=== PATIENT | female | born 1990 | race African-American/Black ===

== ENCOUNTER 2016-09-01 09:31 | Day surgery (SDC) | payer OTHER ==
[~2016-09-01 09:31] MED LIST: RINGERS SOLUTION,LACTATED 1,000 ML IV PRN
[2016-09-01 10:05] LABS: HEMATOCRIT 42.2 % (36.0-47.0); HEMOGLOBIN 13.9 g/dL (12.0-15.5); HGB HCT DIFFERENCE -0.5; MEAN CORPUSCULAR HEMOGLOBIN 29.7 pg (27.0-33.4); MEAN CORPUSCULAR HGB CONC 32.9 g/dL (32.0-36.0); MEAN CORPUSCULAR VOLUME 90 fl (80-97); RED BLOOD COUNT 4.67 10^6/uL (3.72-5.28); RED CELL DISTRIBUTION WIDTH 13.5 % (11.5-14.0); WHITE BLOOD COUNT 6.2 10^3/uL (4.0-10.5)
[2016-09-01] MEDS ORDERED: ALBUTEROL SULFATE 0.083% NEB 2.5 MG/3 ML AMPUL NEB PRN (10:55)
[2016-09-01] MEDS ORDERED: ALBUTEROL SULFATE 0.083% NEB 2.5 MG/3 ML AMPUL NEB ONE (10:56)
[2016-09-01] MEDS ORDERED: RINGERS SOLUTION,LACTATED 1,000 ML IV PRN (11:08)
[2016-09-01] MEDS ORDERED: RINGERS SOLUTION,LACTATED 1,000 ML IV ONE (11:15)
[2016-09-01] MEDS ORDERED: LIDOCAINE 1% INJ-PF (10 MG/ML) 30 ML SDV ONE (12:14)
[2016-09-01] MEDS ORDERED: FENTANYL CITRATE INJ/PF 100 MCG/2 ML AMPUL ONE (15:23)
[2016-09-01] MEDS ORDERED: PROPOFOL INJ 200 MG/20 ML VIAL IV ONE (15:24)
[2016-09-01] MEDS ORDERED: MIDAZOLAM 2 MG/2 ML INJ ONE (15:24)
[2016-09-01] MEDS ORDERED: ACETAMINOPHEN 100 ML IV ONE (15:24)
--- NOTE | 2016-09-01 16:05 | PDOC DISCHARGE SUMMARY ---
Discharge Summary (SDC) - Discharge Final Diagnosis: lipoma right inner thigh Date of Surgery: 09/01/16 Discharge Date: 09/01/16 Condition: Good Treatment or Instructions: Leave dressing on for 48 hours; return to clinic in approximately 1 week for wound check, or seek medical advice if redness, swelling or pain results while out of town. Heavy lifting straining physical activity for approximately 10 days. Steri-Strips to fall off on own. Take Motrin or Tylenol. Discharge Diet: As Tolerated Discharge Activity: Energy Conservation, No Lifting Over 10 Pounds, No Lifting/ Push/Pulling Home Care Assistance: None Needed Report the Following to Your Physician Immediately: Shortness of Breath, Fever over 101 Degrees
[2016-09-01 17:22] VITALS: BP 126/78
--- NOTE | 2016-09-02 12:28 | OPERATIVE REPORT E ---
Operative Report NAME: MATT DORMAN : 1990 AGE: 25Y DATE OF SURGERY: 09/01/2016 ROOM: PREOPERATIVE DIAGNOSIS: Symptomatic left inner thigh lipoma. POSTOPERATIVE DIAGNOSIS: Symptomatic left inner thigh lipoma. OPERATION: Excision of left inner thigh lipoma, closure of wound primarily. SURGEON: CHAVA DIXON M.D. TARIFF PUBLISHING AGENT: MD Ronnie ESTIMATED BLOOD LOSS: Scant. DRAINS: None. TISSUE REMOVED OR ALTERED: Lipoma and overlying skin. COMPLICATIONS: None. FINDINGS: See below. SUMMARY OF PROCEDURE: The patient was seen in the preop holding area, left inner thigh marked, then she was taken to the operating room where LMAC anesthesia was induced. The legs were frog legged into position and the left inner thigh lesion exposed, prepped and draped in a sterile fashion. Surgical plan/surgical timeout were conducted. The skin was anesthetized with 1% lidocaine. The findings were significant for a 3 x 3 x 6 to 7 cm soft tissue mass of the left medial inner thigh. An elliptical incision was made in the skin overlying the longitudinally oriented mass. The underlying mass including lipomatous tissue was excised in its entirety. Additional fatty tissue around the perimeter was also excised to ensure a smooth level closure. Wound closed in layers with 3-0 Vicryl, benzoin and Steri-Strips, and a compressive dressing applied. The patient tolerated the procedure well and taken to the recovery room in stable condition. ANGELITA Trujillo assisted with skin retraction and wound closure. DICTATING PHYSICIAN: CHAVA DIXON M.D. [id number] PHY#: [id number] ID: [id number] JOB#: [id number] ACCT: [id number] cc:CHAVA DIXON M.D. > MTDD
== END 2016-09-01 17:20 | disposition home or self-care (01) ==
LOC: OROUT 09:31
PROVIDERS: ATTEND Surgery
PROC: 0JBM0ZZ Excision of Left Upper Leg Subcutaneous Tissue and Fascia, Open Approach (ICD-10-PCS; principal; 2016-09-01 11:30)
DX: D17.24 Benign lipomatous neoplasm of skin and subcutaneous tissue of left leg (principal); F17.210 Nicotine dependence, cigarettes, uncomplicated; Z79.899 Other long term (current) drug therapy
CPT/HCPCS: 36415; 85027; 81025; 88304 ×2; 94640; 11406; J2250; J3010; J3490; J2704; J0131; 300

== ENCOUNTER → 2017-03-21 | Outpatient (CLI) | payer OTHER ==
--- NOTE | 2017-03-21 16:27 | RADIOLOGY REPORT (SQ) ---
EXAM DESCRIPTION: U/S IH3IINE TRNABD 1GES W/ODOP COMPLETED DATE/TIME: 03/21/2017 4:11 pm REASON FOR STUDY: Z34.81 ENCOUNTER FOR SUPRVSN OF NORMAL , FIRST TRIMESTER Z34.81 ENCOUNTE R FOR SUPRVSN OF NORMAL , FIRST TRIM COMPARISON: None. TECHNIQUE: Trans abdominal static and realtime grayscale images acquired of the pelvis. Additional s elected spectral and color Doppler images recorded. All images stored on PACs. bHCG: Not available LIMITATIONS: None. FINDINGS: FETUS: Living intrauterine . EGA: 8 weeks 6 days by crown-rump length ANG: 10/25/2017 FHR: 173 beats per minute. SUBCHORIONIC BLEED: No SIZE OF BLEED: Not applicable. UTERUS: No masses. No anomalies. Uterus is 11.5 x 7.2 x 7.4 cm in size. Placenta is developing ante riorly CERVICAL LENGTH: 3 cm. Closed. RIGHT ADNEXA: Normal ovary with normal vascular flow. Right ovary 3.3 x 2.7 x 2.1 cm in size. No adnexal free fluid. No adnexal masses. LEFT ADNEXA: Left ovary and adnexa not well seen due to bowel gas. FREE FLUID: None. OTHER: No other significant finding. IMPRESSION: LIVING INTRAUTERINE . EGA 8 weeks 6 days Trimester of : First - 0 to 13 weeks. TECHNICAL DOCUMENTATION: JOB ID: [id number] [email or web address]- All Rights Reserved
== END ==
LOC: RAD 16:20
PROVIDERS: ATTEND Nurse Practitioner Women's Health
DX: Z34.81 Encounter for supervision of other normal pregnancy, first trimester (principal)
CPT/HCPCS: 76801

== ENCOUNTER → 2017-06-02 | Outpatient (CLI) | payer SELFPAY ==
--- NOTE | 2017-06-02 16:34 | RADIOLOGY REPORT (SQ) ---
EXAM DESCRIPTION: U/S OB 14+ TRNABD 1GES W/O DOP COMPLETED DATE/TIME: 06/02/2017 4:25 pm REASON FOR STUDY: ENCOUNTER FOR SUPERVISION OF OTHER NORMAL , SECOND TRIMESTER Z34.82 ENCO UNTER FOR SUPRVSN OF NORMAL , SECOND TRI COMPARISON: None. TECHNIQUE: Static and Dynamic grayscale imaging performed of gravid uterus using transabdominal appr oac. Additional selected color Doppler and spectral images recorded. All stored on PACS. LIMITATIONS: None. FINDINGS: EGA: 19 weeks 5 days ANG: 10/22/2017 ANA: 10.9 PLACENTA: Anterior. GRADE: I PRESENTATION: Transverse. ANATOMY: HEART RATE: 160 beats per minute. FOUR CHAMBER HEART: Visualized. THREE VESSEL CORD: Yes. CORD INSERTION: Visualized. KIDNEYS AND BLADDER: Visualized. Appear normal. STOMACH: Visualized. Appears normal. SPINE: Normal as visualized. BRAIN AND LATERAL VENTRICLES: Visualized. Appear normal. OTHER: No other significant finding. MATERNAL ADNEXA: Maternal ovaries not visualized. CERVICAL LENGTH: 3.2 cm Closed. OTHER: No other significant finding. IMPRESSION: LIVING INTRAUTERINE . ESTIMATED GESTATIONAL AGE 19 weeks 5 days NO VISUALIZED ANOMALIES. Trimester of : Second trimester - 13 weeks 1 day to 27 weeks 6 days. TECHNICAL DOCUMENTATION: JOB ID: [id number] [employer]- All Rights Reserved Reading location - IP/workstation name: [email or web address]
== END ==
LOC: RAD 14:54
PROVIDERS: ATTEND Nurse Practitioner Women's Health
DX: Z34.82 Encounter for supervision of other normal pregnancy, second trimester (principal)
CPT/HCPCS: 76805

== ENCOUNTER 2017-10-18 17:10 | Emergency (ER) | payer OTHER ==
[2017-10-18 18:24] VITALS: BP 131/79
--- NOTE | 2017-10-18 19:21 | EKG REPORT ---
SEVERITY:- ABNORMAL ECG - SINUS RHYTHM NONSPECIFIC T ABNORMALITIES, ANTERIOR LEADS : Confirmed by: Scott Venegas MD 18-Oct-2017 19:20:50
--- NOTE | 2017-10-18 19:36 | ER Document Report ---
ED General - General Chief Complaint: Chest Pain Stated Complaint: chest pain Time Seen by Provider: 10/18/17 19:18 Notes: Patient is a 27-year-old female that is 39 weeks gravid that presents to the emergency department for chief complaint of chest pain. Patient reports that she had an episode of chest pain around 1:00 to last about 25 minutes she described as a sharp sensation, that went to her left shoulder, is not worse with exertion, she did have some nausea but no vomiting. She then had a a second episode of the chest pain, so she called her OB office and they recommended her to come to the emergency department. Denies prior history of cardiac disease, or DVT or PE. Denies family history of the same. She also denies any unilateral leg swelling, or redness, states she has had some swelling in her legs from the , but nothing that is changed recently. Past Medical History: Denies chronic medical conditions Past Surgical History: Denies significant surgical history Social History: Denies tobacco, alcohol or drug use. Family History: Reviewed and noncontributory for presenting illness Allergies: Reviewed, see documented allergy list. REVIEW OF SYSTEMS: Unless otherwise stated in this report the patient's positive and negative responses for review of systems for constitutional, eyes, ENT, cardiovascular, respiratory, gastrointestinal, neurological, genitourinary, musculoskeletal, and integumentary systems and related systems to the presenting problem are either as stated in the HPI or were not pertinent or were negative for the symptoms and/or complaints related to the presenting medical problem. PHYSICAL EXAMINATION: Vital signs reviewed, nursing noted reviewed. GENERAL: Well-appearing, well-nourished and in no acute distress. HEAD: Atraumatic, normocephalic. EYES: Eyes appear normal, extraocular movements intact, sclera anicteric, conjunctiva are normal. ENT: nares patent, oropharynx clear without exudates. Moist mucous membranes. NECK: Normal range of motion, supple without lymphadenopathy LUNGS: Breath sounds clear to auscultation bilaterally and equal. No wheezes rales or rhonchi. HEART: Regular rate and rhythm without murmurs ABDOMEN: Soft, gravid abdomen, nontender, normoactive bowel sounds. No rebound , guarding, or rigidity. No masses appreciated. EXTREMITIES: Nontender, good range of motion, no pitting or edema. NEUROLOGICAL: No focal neurological deficits. Moves all extremities spontaneously Motor and sensory grossly intact on exam. PSYCH: Normal mood, normal affect. SKIN: Warm, Dry, normal turgor, no rashes or lesions noted on exposed skin TRAVEL OUTSIDE OF THE [place] IN LAST 30 DAYS: No - Related Data Allergies/Adverse Reactions: No Known Allergies Allergy (Verified 10/18/17 20:49) Past Medical History - Social History Smoking Status: Never Smoker Family History: Reviewed & Not Pertinent Patient has suicidal ideation: No Patient has homicidal ideation: No - Past Medical History Cardiac Medical History: Denies: Hx Coronary Artery Disease, Hx Heart Attack, Hx Hypertension Pulmonary Medical History: Denies: Hx Asthma, Hx Bronchitis, Hx COPD, Hx Pneumonia Neurological Medical History: Denies: Hx Cerebrovascular Accident, Hx Seizures Renal/ Medical History: Denies: Hx Peritoneal Dialysis Musculoskeletal Medical History: Denies Hx Arthritis - Immunizations Hx Diphtheria, Pertussis, Tetanus Vaccination: Yes Review of Systems - Review of Systems Notes: Dictated Physical Exam - Vital signs Vitals: Temp Pulse Resp BP Pulse Ox 98.5 F 63 18 131/79 H 99 10/18/17 18:22 10/18/17 18:22 10/18/17 18:22 10/18/17 18:22 10/18/17 18:22 - Notes Notes: Dictated Course - Re-evaluation Re-evalutation: 10/18/17 19:36 Patient seen and examined vital signs reviewed. Laboratory data and imaging were ordered as appropriate for the patient's presenting symptoms and complaint, with consideration of any critical or life threatening conditions that may be associated with their obtained history and exam as noted above. Patient was advised of the risks and benefits of evaluating chest pain in , I did recommend that the patient have a workup for possible PE including a d-dimer and CT angiogram, however the patient after being advised on radiation risk versus the risk of possibly having a pulmonary embolism, the patient refused CT imaging We will obtain cardiac evaluation however, including EKG and troponin testing, and d-dimer if negative, will have the patient go to labor and delivery, advised her that she would have to leave AGAINST MEDICAL ADVICE, patient was agreeable to this plan of care, patient also refused chest x-ray, did not want any radiation exposure, she was advised that if her symptoms worsen developed shortness of breath that she should immediately return to the emergency department. Patient was transferred to labor and delivery, they stated they will follow-up on the patient's blood work. After performing a Medical Screening Examination, I spoke with the patient at length in regards to leaving the department against medical advice. I discussed evaluation for their presenting complaint and recommended further evaluation, specifically CT imaging for PE evaluation. I do not believe the patient should leave but the patient is alert oriented x4, understands the risks and benefits of staying and leaving including disability and . Pt understands that they can return at any time for further care and is more than welcome to do so. Pt verbalizes this understanding. *Note is created using voice recognition software and may contain spelling, syntax or grammatical errors. - Vital Signs Vital signs: Temp Pulse Resp BP Pulse Ox 98.5 F 63 18 131/79 H 99 10/18/17 18:22 10/18/17 18:22 10/18/17 18:22 10/18/17 18:22 10/18/17 18:22 - Laboratory Result Diagrams: 10/18/17 19:43 10/18/17 19:43 Laboratory results interpreted by me: 10/18/17 10/18/17 10/18/17 19:43 19:43 19:43 D-Dimer 0.61 H Chloride 108 H Carbon Dioxide 19 L Glucose 72 L Alkaline Phosphatase 129 H Urine Protein 30 H Urine Urobilinogen 4.0 H - EKG Interpretation by Me Additional EKG results interpreted by me: 10/18/17 19:58 EKG demonstrates normal sinus rhythm with a ventricular rate of 65 bpm, normal axis, normal intervals, T-wave inversion noted in V2-V4, no ST changes. Discharge - Discharge Clinical Impression: Chest pain Qualifiers: Chest pain type: unspecified Qualified Code(s): R07.9 - Chest pain, unspecified Condition: Good Disposition: AGAINST MEDICAL ADVICE Instructions: Chest Pain of Unclear Cause ([facility])
[2017-10-18 20:15] LABS: ABSOLUTE BASOPHILS # (AUTO) 0.1 10^3/uL (0.0-0.2); ABSOLUTE EOSINOPHILS # (AUTO) 0.1 10^3/uL (0.0-0.6); ABSOLUTE LYMPHOCYTES (AUTO) 2.8 10^3/uL (0.5-4.7); ABSOLUTE MONOCYTES (AUTO) 0.8 10^3/uL (0.1-1.4); ABSOLUTE NEUT (AUTO) 6.5 10^3/uL (1.7-8.2); BASOPHILS % (AUTO) 0.6 % (0-2); EOSINOPHILS % (AUTO) 1.1 % (0-6); HEMATOCRIT 40.4 % (36.0-47.0); HEMOGLOBIN 13.5 g/dL (12.0-15.5); LYMPHOCYTES % (AUTO) 27.4 % (13-45); MEAN CORPUSCULAR HEMOGLOBIN 30.1 pg (27.0-33.4); MEAN CORPUSCULAR HGB CONC 33.5 g/dL (32.0-36.0); MEAN CORPUSCULAR VOLUME 90 fl (80-97); MONOCYTES % (AUTO) 7.6 % (3-13); PLATELET COUNT 165 10^3/uL (150-450); RED BLOOD COUNT 4.49 10^6/uL (3.72-5.28); SEGMENTED NEUTROPHILS % (AUTO) 63.3 % (42-78); TOTAL CELLS COUNTED % (AUTO) 100 %; WHITE BLOOD COUNT 10.3 10^3/uL (4.0-10.5)
[2017-10-18 20:19] LABS: APPEARANCE,URINE SLIGHTLY-CLOUDY; BILIRUBIN,URINE NEGATIVE (NEGATIVE); COLOR,URINE AMBER; GLUCOSE, URINE NEGATIVE (NEGATIVE); KETONES,URINE NEGATIVE (NEGATIVE); LEUKOCYTE ESTERASE,URINE NEGATIVE (NEGATIVE); NITRITE,URINE NEGATIVE (NEGATIVE); PROTEIN,URINE 30 mg/dL (NEGATIVE)
[2017-10-18 20:34] LABS: ALANINE AMINOTRANSFERASE 24 U/L (9-52); ALBUMIN 3.5 g/dL (3.5-5.0); ALKALINE PHOSPHATASE 129 U/L (38-126); ANION GAP 10 (5-19); ASPARTATE AMINO TRANSFERASE 20 U/L (14-36); BILIRUBIN,DIRECT 0.3 mg/dL (0.0-0.4); BILIRUBIN,TOTAL 0.5 mg/dL (0.2-1.3); BLOOD UREA NITROGEN 10 mg/dL (7-20); CALCIUM 9.2 mg/dL (8.4-10.2); CARBON DIOXIDE 19 mmol/L (22-30); CHLORIDE 108 mmol/L (98-107); GLUCOSE 72 mg/dL (75-110); POTASSIUM 4.1 mmol/L (3.6-5.0); SODIUM 137.1 mmol/L (137-145); TOTAL PROTEIN 6.9 g/dL (6.3-8.2)
== END 2017-10-18 19:58 | disposition left against medical advice (07) ==
LOC: ER 17:10 → LC 17:10 → EDSTATUS 17:33 → ER 19:58
DX: O26.893 Other specified pregnancy related conditions, third trimester (principal); R07.9 Chest pain, unspecified; R11.0 Nausea; Z3A.39 39 weeks gestation of pregnancy; Z53.20 Procedure and treatment not carried out because of patient's decision for unspecified reasons
CPT/HCPCS: 36415; 80053; 81001; 84484; 85025; 85379; 93005; 93010; 99285

== ENCOUNTER 2017-10-23 22:10 | Inpatient (IN) | payer OTHER ==
[2017-10-23 23:12] LABS: APPEARANCE,URINE CLOUDY; BILIRUBIN,URINE NEGATIVE (NEGATIVE); COLOR,URINE YELLOW; GLUCOSE, URINE NEGATIVE (NEGATIVE); KETONES,URINE NEGATIVE (NEGATIVE); LEUKOCYTE ESTERASE,URINE MODERATE (NEGATIVE); NITRITE,URINE NEGATIVE (NEGATIVE); PROTEIN,URINE 100 mg/dL (NEGATIVE); URINE SPECIFIC GRAVITY 1.017; UROBILINOGEN,URINE NEGATIVE mg/dL (<2.0)
[2017-10-23 23:22] LABS: URINE AMPHETAMINES SCREEN NEGATIVE; URINE BARBITURATES SCREEN NEGATIVE; URINE BENZODIAZEPINES SCREEN NEGATIVE; URINE COCAINE SCREEN NEGATIVE; URINE MARIJUANA (THC) SCREEN NEGATIVE; URINE METHADONE SCREEN NEGATIVE; URINE PHENCYCLIDINE SCREEN NEGATIVE
[2017-10-23] MEDS ORDERED: OXYTOCIN/NORMAL SALINE 20 UNIT/1,000 ML RTUINJ IV PRN (23:52)
[2017-10-24] MEDS ORDERED: RINGERS SOLUTION,LACTATED 1,000 ML IV PRN (00:12)
[2017-10-24 00:19] LABS: ABSOLUTE EOSINOPHILS # (AUTO) 0.1 10^3/uL (0.0-0.6); ABSOLUTE LYMPHOCYTES (AUTO) 2.7 10^3/uL (0.5-4.7); ABSOLUTE MONOCYTES (AUTO) 0.8 10^3/uL (0.1-1.4); BASOPHILS % (AUTO) 0.2 % (0-2); EOSINOPHILS % (AUTO) 1.2 % (0-6); HEMOGLOBIN 13.4 g/dL (12.0-15.5); LYMPHOCYTES % (AUTO) 28.1 % (13-45); MEAN CORPUSCULAR HGB CONC 33.5 g/dL (32.0-36.0); MEAN CORPUSCULAR VOLUME 89 fl (80-97); MONOCYTES % (AUTO) 8.3 % (3-13); PLATELET COUNT 180 10^3/uL (150-450); RED BLOOD COUNT 4.48 10^6/uL (3.72-5.28); RED CELL DISTRIBUTION WIDTH 14.1 % (11.5-14.0); SEGMENTED NEUTROPHILS % (AUTO) 62.2 % (42-78); TOTAL CELLS COUNTED % (AUTO) 100 %; WHITE BLOOD COUNT 9.6 10^3/uL (4.0-10.5)
[2017-10-24] MEDS ORDERED: FENTANYL CITRATE INJ/PF 100 MCG/2 ML AMPUL ONE (01:06)
[2017-10-24] MEDS ORDERED: EPHEDRINE SULFATE INJ 50 MG/1 ML AMPULE ONE (01:06)
[2017-10-24] MEDS ORDERED: PHENYLEPHRINE HCL INJ/PF 10 MG/1 ML SDV ONE (01:06)
[2017-10-24] MEDS ORDERED: MISOPROSTOL 0.2 MG TABLET ONE (01:07)
[2017-10-24] MEDS ORDERED: FENTANYL/BUPIVACAINE/NS/PF 300 MCG/150 ML RTUINJ EPI ONE (01:08)
[2017-10-24] MEDS ORDERED: LIDOCAINE 1% INJ-PF (10 MG/ML) 30 ML SDV ONE (01:09)
[2017-10-24] MEDS ORDERED: BUPIVACAINE HCL 0.5 % INJ/PF 30 ML SDV ONE (01:09)
[2017-10-24] MEDS ORDERED: OXYTOCIN/NORMAL SALINE 20 UNIT/1,000 ML RTUINJ ONE (01:09)
--- NOTE | 2017-10-24 04:06 | Admission Physical ---
Datetime Report Generated by CPN: 10/24/2017 04:06 CURRENT ADMISSION Chief Complaint: Uterine Contractions; Suspected Ruptured Membranes Indication for Induction: PROM Admit Impression : Term, Intrauterine ; Ruptured Membranes Admit Plan: Admit to Unit; Initiate Labor Augmentation Protocol ALLERGIES Medication Allergies: No Medication Allergies: No Known Allergies (10/18/2017) Latex: No Latex Allergies OBSTETRICAL HISTORY EDC: 10/23/2017 00:00 : 4 Para: 1 Term: 0 : 1 SAB: 1 IAB: 1 Ectopic: 0 Livin Cesareans: 0 VBACs: 0 Multiple Births: 0 Gestational Diabetes: No Rh Sensitization: No Incompetent Cervix: No BROWN: No Infertility: No ART Treatment: No Uterine Anomaly: No IUGR: No Hx Previous C/S: No Macrosomia: No Hx Loss/Stillborn: No PIH: No Hx : No Placenta Previa/Abruption: No Depression/PP Depression: No PTL/PROM: No Post Hemorrhage: Yes Current Procedures: Ultrasound; NST Obstetrical History Comments: G1-01/2010- @ 36wks female--IOL for oligohydramnios; retained placenta with PPH _ emergency D_C G2-05/2010-SAB @ 6 wks G3-07/2015-IAB G4-Current SEE RECORDS Alcohol: No Marijuana : No Cocaine: No Other Illicit Drugs: No Cigarettes: Former Smoker. [id number] MEDICAL HISTORY Diabetes: No Blood Transfusion: No Pulmonary Disease (Asthma, TB): No Breast Disease: No Hypertension: No Electronic Technician Surgery: No Heart Disease: No Hosp/Surgery: No Autoimmune Disorder: No Anesthetic Complications: No Kidney Disease: No Abnormal Pap Smear: Yes Neuro/Epilepsy: No Psychiatric Disorders: No Other Medical Diseases: No Hepatitis/Liver Disease: No Significant Family History: No Varicosities/Phlebitis: No Trauma/Violence : No Thyroid Dysfunction: No Medical History Comments: ASCUS w/HRHPV; colpo-LGSIL +HPV INFECTIOUS HISTORY Gonorrhea: No Genital Herpes: No Chlamydia: No Tuberculosis: No Syphilis: No Hepatitis: No HIV/AIDS Exposure: No Rash or Viral Illness: No HPV: No PHYSICAL EXAM General: Normal HEENT: Normal Neurologic: Normal Thyroid: Normal Heart: Normal Lungs: Normal Breast: Normal Back: Normal Abdomen: Normal Genitourinary Exam: Normal Extremities: Normal DTRs: Normal Pelvic Type: Adequate Vital Signs: Reviewed; Within Normal Limits VAGINAL EXAM Dilatation: 3 Effacement: 75 Station: -1 MEMBRANES Pooling: Negative Membranes: Ruptured Amniotic Fluid Color: Clear FETUS A EGA: 40.0 Monitoring: External US FHR- Baseline: 130 Variability: Moderate 6-25bpm Accelerations: 15X15 Decelerations: None FHR Category: Category I Estimated Weight (gm): 3000 Presentation: Vertex PLANS FOR LABOR AND DELIVERY Labor and Delivery: None Pain Management: Epidural Feeding Preference: Breast Benefit of Breast Feed Discussed: Yes Circumcision: N/A INFORMED CONSENT Signature: with User ID: [email or web address]
[2017-10-24] MEDS: IBUPROFEN 800 MG TABLET PO SCH ×3 (05:25→21:15)
[2017-10-24] MEDS ORDERED: IBUPROFEN 800 MG TABLET ONE (05:42)
[2017-10-24] MEDS ORDERED: DIBUCAINE 1% OINTMENT 28 GM TP PRN (05:50)
[2017-10-24] MEDS ORDERED: PSEUDOEPHEDRINE HCL 30 MG TABLET PO PRN (05:50)
[2017-10-24] MEDS ORDERED: PROMETHAZINE HCL 25 MG SUPP.RECT PR PRN (05:50)
[2017-10-24] MEDS ORDERED: DIPH/PERTUSS(ACELL)/TETANUS VAC/PF 0.5 ML SYR (>=10YO) IM PRN (05:50)
[2017-10-24] MEDS ORDERED: GLYCERIN/WITCH HAZEL LEAF 1 EACH MED..PAD TP PRN (05:50)
[2017-10-24] MEDS ORDERED: ACETAMINOPHEN 650 MG SUPP.RECT PR PRN (05:50)
[2017-10-24] MEDS ORDERED: NA PHOS,M-B/NA PHOS,DI-BA (ADULT) 133 ML ENEMA PR PRN (05:50)
[2017-10-24] MEDS ORDERED: DIPHENHYDRAMINE HCL 25 MG CAPSULE PO PRN (05:50)
[2017-10-24] MEDS ORDERED: MAGNESIUM HYDROXIDE SUSP 30 ML UDCUP PO PRN (05:50)
[2017-10-24] MEDS ORDERED: PROMETHAZINE HCL INJ 25 MG/1 ML VIAL IV PRN (05:50)
[2017-10-24] MEDS ORDERED: OXYTOCIN/NORMAL SALINE 20 UNIT/1,000 ML RTUINJ IV PRN (05:50)
[2017-10-24] MEDS ORDERED: MEASLES,MUMPS&RUBELLA VACC/PF 0.5 ML VIAL SUBCUT PRN (05:50)
[2017-10-24] MEDS ORDERED: ACETAMINOPHEN WITH CODEINE #3 TABLET PO PRN ×2 (05:50)
[2017-10-24] MEDS ORDERED: PROMETHAZINE HCL 25 MG TABLET PO PRN (05:50)
[2017-10-24] MEDS ORDERED: ZOLPIDEM TARTRATE 5 MG TABLET PO PRN (05:50)
[2017-10-24] MEDS ORDERED: BENZOCAINE/MENTHOL AEROSOL SPRAY 56 ML TOP PRN (05:50)
--- NOTE | 2017-10-24 09:04 | Delivery Summary ---
Del Sum A-C Datetime Report Generated by CPN: 10/24/2017 09:04 DELIVERY PERSONNEL DELIVERY PERSONNEL: [id number] Delivery Doctor:: Shala Esteban MD Anesthesiologist:: Babs Lozano MD Labor and Delivery Nurse:: Syeda Russell RNmixer crane operator Nurse:: Kenisha Vazquez RN Nursery Nurse:: Mary Crowell RN MATERNAL INFORMATION Delivery Anesthesia: Epidural Medications After Delivery: Pitocin Drip 20 Units/1000ml NSS Estimated Blood Loss (ml): 100 Maternal Complications: None LABOR SUMMARY EDC: 10/23/2017 00:00 No. Babies in Womb: 1 Attempted: No Labor Anesthesia: Epidural LABOR INFORMATION Reason for Induction: Not Applicable Onset of Labor: 10/23/2017 21:30 Complete Dilatation: 10/24/2017 03:48 Oxytocin: Augmentation Group B Beta Strep: Negative Antibiotics # of Doses: N/A Antibiotics Time of Last Dose: N/A Name of Antibiotic Given: N/A Steroids Given: None Reason Steroids Not Administered: Not Applicable MEMBRANES Membranes Rupture Method: Spontaneous Rupture of Membranes: 10/23/2017 21:30 Length of Rupture (hr): 6.40 Amniotic Fluid Color: Clear Amniotic Fluid Amount: Moderate Amniotic Fluid Odor: Normal STAGES OF LABOR Stage 1 hr: 6 Stage 1 min: 18 Stage 2 hr: 0 Stage 2 min: 6 Stage 3 hr: 0 Stage 3 min: 7 Total Time in Labor hr: 6 Total Time in Labor min: 31 VAGINAL DELIVERY Episiotomy: None Laceration #1: None Laceration Extension #1: N/A Laceration Repair: Not Applicable Initial Vag Sponge Count: n/a Final Vag Sponge Count: n/a Initial Vag Sharps Count: n/a Final Vag Sharps Count: n/a Sponge Count Correct: N/A Sharps Count Correct: N/A CSECTION DELIVERY Primary Indication: N/A Other Primary Indication: n/a Secondary Indication: N/A Other Secondary Indication: n/a CSection Urgency: n/a CSection Incidence: N/A Labor: N/A Elective: N/A CSection Incision: N/A BABY A INFORMATION Delivery Date/Time: 10/24/2017 03:54 Method of Delivery: Vaginal Born in Route : No : N/A Forceps: N/A Vacuum Extraction: N/A Shoulder Dystocia : No PRESENTATION/POSITION BABY A Presentation: Cephalic Cephalic Presentation: Vertex Vertex Position: Left Occipital Anterior Breech Presentation: N/A PLACENTA INFORMATION BABY A Placenta Delivery Time : 10/24/2017 04:01 Placenta Method of Delivery: Spontaneous Placenta Status: Delivered SCORES BABY A Heart Rate 1 min: >100 bpm Resp Effort 1 min: Good Cry Reflex Irritability 1 min: Cough or Sneeze or Pulls Away Muscle Tone 1 min: Active Motion Color 1 min: Blue/Pale SCORE 1 MIN: 8 Heart Rate 5 min: >100 bpm Resp Effort 5 min: Good Cry Reflex Irritability 5 min: Cough or Sneeze or Pulls Away Muscle Tone 5 min: Active Motion Color 5 min: Body [place], Extremities Blue SCORE 5 MIN: 9 INFANT INFORMATION BABY A Gestational Age at Delivery: 40.1 Gestational Status: Full Term- 39- 40.6 Weeks Infant Outcome : Liveborn Infant Condition : Stable Infant Sex: Female IDENTIFICATION BABY A Verification Date/Time: 10/24/2017 04:06 ID Band Number: [id number] Mother's Name Verified: Yes Infant RN Verifying : E. Vinnielek RN/E. Drew RN WEIGHT/LENGTH BABY A Birthweight (gm): 2970 Infant Weight (lb): 6 Weight (oz): 9 Length (in): 19.00 Length (cm): 48.26 CORD INFORMATION BABY A No. Cord Vessels: 3 Nuchal Cord : Around Neck x1, Tight Cord Blood Taken: Yes-For Eval (Mom's Blood Type - or O+) Suction: Mouth; Nose ASSESSMENT BABY A Complications: None Physical Findings at Delivery: Within Normal Limits Infant Respirations: Appears Normal Skin to Skin: Yes Scrapper/ALS Called : No Infant Care By: Mary Crowell, RN Transferred To: Remains with Mother BABY B INFORMATION : N/A SIGNATURES Signature: with User ID: [email or web address]
[2017-10-24] MEDS: FERROUS SULFATE 325 MG TABLET PO SCH (17:18)
[2017-10-24] MEDS: DOCUSATE SODIUM 100 MG CAPSULE PO SCH (17:19)
[2017-10-24] MEDS: FAMOTIDINE 20 MG TABLET PO SCH (21:20)
[2017-10-25] MEDS: IBUPROFEN 800 MG TABLET PO SCH ×2 (06:06→13:47)
[2017-10-25 08:22] LABS: HEMATOCRIT 34.9 % (36.0-47.0); HEMOGLOBIN 11.6 g/dL (12.0-15.5); MEAN CORPUSCULAR HGB CONC 33.3 g/dL (32.0-36.0); MEAN CORPUSCULAR VOLUME 90 fl (80-97); PLATELET COUNT 148 10^3/uL (150-450); RED BLOOD COUNT 3.87 10^6/uL (3.72-5.28); RED CELL DISTRIBUTION WIDTH 14.3 % (11.5-14.0)
[2017-10-25 08:47] VITALS: BP 129/67
[2017-10-25] MEDS: FAMOTIDINE 20 MG TABLET PO SCH (09:36)
[2017-10-25] MEDS: SENNOSIDES/DOCUSATE 8.6-50 MG 1 EACH TABLET PO SCH ×2 (09:36)
[2017-10-25] MEDS: FERROUS SULFATE 325 MG TABLET PO SCH ×3 (09:36→17:37)
[2017-10-25] MEDS: DOCUSATE SODIUM 100 MG CAPSULE PO SCH ×3 (09:38→17:37)
[2017-10-25] MEDS: PRENATAL VITAMIN W DHA CAPSULE PO SCH ×2 (09:38)
--- NOTE | 2017-10-25 11:36 | PDOC DISCHARGE SUMMARY ---
Final Diagnosis Discharge Date: 10/25/17 Discharge Data - Discharge Medication Prescriptions: Ibuprofen [Motrin 800 mg Tablet] 800 mg PO Q8 #60 tablet Home Medications: Prenat 115/Iron Fum/Folic/Dss [ 19 Tablet] 1 tab PO DAILY 10/18/17 Ibuprofen [Motrin 800 mg Tablet] 800 mg PO Q8 #60 tablet 10/25/17 Procedures: NST Intrapartum Procedure(s): Spontaneous Vaginal Delivery - Diagnosis Test Laboratory: Temp Pulse Resp BP Pulse Ox 98.1 F 52 L 17 129/67 H 98 10/25/17 08:32 10/25/17 08:32 10/25/17 08:32 10/25/17 08:32 10/25/17 08:32 10/23/17 10/24/17 10/25/17 22:21 00:06 07:20 RBC 4.48 3.87 Hgb 13.4 11.6 L Hct 40.0 34.9 L Urine Opiates Screen NEGATIVE - Discharge information/Instructions Discharge Activity: Balance Activity w/Rest, Pelvic Rest Discharge Diet: Regular Disposition: HOME, SELF-CARE Follow up with: [facility] in: 4, Weeks
== END 2017-10-25 18:45 | disposition home or self-care (01) | DRG 774 ==
LOC: LC 22:10 → LR 23:39 → 2S 10-24 09:19
PROVIDERS: ADMIT Obstetrics & Gynecology; ATTEND Obstetrics & Gynecology
PROC: 10E0XZZ Delivery of Products of Conception, External Approach (ICD-10-PCS; principal; 2017-10-24)
DX: O42.02 Full-term premature rupture of membranes, onset of labor within 24 hours of rupture (principal); O98.32 Other infections with a predominantly sexual mode of transmission complicating childbirth; O69.1XX0 Labor and delivery complicated by cord around neck, with compression, not applicable or unspecified; O99.334 Smoking (tobacco) complicating childbirth; F17.210 Nicotine dependence, cigarettes, uncomplicated; A63.0 Anogenital (venereal) warts; Z3A.40 40 weeks gestation of pregnancy; Z37.0 Single live birth
CPT/HCPCS: 36415; 80307; 81005; 84112; 85025; 85027; 86850; 86900; 86901; J2370; J2590; J3010; J3490